=== PATIENT | female | born 1985 ===

== ENCOUNTER 2016-12-28 19:11 | Emergency (ER) | payer MEDICAID ==
[2016-12-28 19:23] VITALS: BP 127/72; PULSE 96; RESP 20; TEMP 98.1; O2SAT 100
[2016-12-28] MEDS ORDERED: Lactated Ringer's 1,000 ML in Lactated Ringer's 1,000 ML IV STA (20:20)
[2016-12-28 20:47] LABS: BASO % 0.3 % (0.0-2.0); EOS # 0.1 K/uL (0.0-0.7); EOS % 1.4 % (0.0-4.0); HEMATOCRIT 34.4 % (34.0-47.0); LYMPH # 2.7 K/uL (1.0-4.3); LYMPH % 30.2 % (20.0-40.0); MEAN CELL VOLUME 88.4 fl (81.0-99.0); MEAN CORPUSCULAR HEMOGLOBIN 29.5 pg (27.0-31.0); MEAN CORPUSCULAR HGB CONC 33.4 g/dL (33.0-37.0); MONO % 11.6 % (0.0-10.0); NEUT # 5.1 K/uL (1.8-7.0); NEUT % 56.5 % (50.0-75.0); RED CELL DISTRIBUTION WIDTH 13.1 % (11.5-14.5)
--- NOTE | 2016-12-28 20:51 | ED PDOC ---
HPI: Abdomen Time Seen by Provider: 12/28/16 19:39 Chief Complaint (Nursing): Abdominal Pain Chief Complaint (Provider): Pelvic Pain History Per: Patient History/Exam Limitations: no limitations Onset/Duration Of Symptoms: Days (x2 weeks) Outside of [place] travel?: No Additional Complaint(s): 19:39 Bhavana Wheeler is a 31 year old female that is currently 7 weeks in her first that presents to the ED with a chief complaint of cramping pelvic pain that she has been experiencing for the past two weeks, but has become more severe and occurred more frequently over the past two days. She states that she is taking vitamins, and that she is following with Dr. Shin at [facility]. She denies any vaginal bleeding or abnormal discharge, urinary complications, hematochezia, rectal pain, nausea, or vomiting, but has been experiencing constipation. Patient is currently asymptomatic. Abnormal Vaginal Bleeding: No Last Menstral Period: 11/10/16 Past Medical History Reviewed: Historical Data, Nursing Documentation, Vital Signs Vital Signs: Last Vital Signs Temp 98.1 F 12/28/16 19:22 Pulse 96 H 12/28/16 19:22 Resp 20 12/28/16 19:22 BP 127/72 12/28/16 19:22 Pulse Ox 100 12/28/16 20:57 - Medical History PMH: No Chronic Diseases - Surgical History Surgical History: No Surg Hx - Family History Family History: States: Other (no significant family history) - Social History Current smoker - smoking cessation education provided: No Alcohol: None - Allergies Allergies/Adverse Reactions: Allergies Allergy/AdvReac Type Severity Reaction Status Date / Time No Known Allergies Allergy Verified 12/28/16 19:21 Review of Systems Gastrointestinal: Positive for: Constipation. Negative for: Nausea, Vomiting, Hematochezia, Rectal Pain Genitourinary Female: Positive for: Pelvic Pain (cramping). Negative for: Dysuria, Frequency, Hematuria, Vaginal Discharge, Vaginal Bleeding Physical Exam - Reviewed Nursing Documentation Reviewed: Yes Vital Signs Reviewed: Yes - Physical Exam Appears: Positive for: Non-toxic, No Acute Distress Head Exam: Positive for: ATRAUMATIC, NORMOCEPHALIC Skin: Positive for: Normal Color, Warm Eye Exam: Positive for: Normal appearance, EOMI Cardiovascular/Chest: Positive for: Regular Rate, Rhythm. Negative for: Murmur Respiratory: Positive for: Normal Breath Sounds. Negative for: Respiratory Distress Pelvic Exam: Positive for: External Exam Normal Neurologic/Psych: Positive for: Alert, Oriented - Laboratory Results Result Diagrams: 12/28/16 20:40 12/28/16 20:40 - ECG O2 Sat by Pulse Oximetry: 100 (RA) Pulse Ox Interpretation: Normal Medical Decision Making Medical Decision Makin:40 Initial Impression: Pelvic Pain vs. UTI vs. Dehydration vs. Round Ligament Pain vs. Normal vs. Demise Initial Plan: * Beta-HCG * CMP * CBC * Urine * Urine Dip * Lactated Ringers 1000 mL at 1000 mLs/hr * US Transvaginal * Reevaluation * EXAM: US , Transvaginal. CLINICAL HISTORY: 31 years old, female; Pain; Other: Pelvic pain; Gestational age or lmp: 11/10/16; TECHNIQUE: Real-time transvaginal obstetrical ultrasound of the maternal pelvis and a first trimester with image documentation. Transvaginal imaging was used for better evaluation of the fetus and adnexa. EXAM DATE/TIME: 12/28/2016 8:21 PM COMPARISON: There are no prior studies for comparison. FINDINGS: Uterus: Uterus measures approximately 7.3 x 4.6 cm. Gestation: There is a single intrauterine gestation. Gestational sac has mean diameter 22.6 mm. A yolk sac is present, internal diameter measures 3 mm. [place] rump length measures 9.4 mm. There is an embryonic heart rate of 139 beats per minute. Right ovary: Right ovary measures approximately 3.03 x 2.97 x 2.78 cm. There is a 1.8 x 1.9 x 1.5 cm complex cyst. There is expected blood flow on Doppler imaging Left ovary: Left ovary measures approximately 2 point well above 1 42 x 1.25 cm. There are multiple follicles. There is expected blood flow on Doppler imaging IMPRESSION: 7 week 0 day single living intrauterine gestation, estimated date of delivery of 08/16/17; right ovarian cyst Thank you for allowing us to participate in the care of your patient. Dictated and Authenticated by: Tiara Spencer MD 12/28/2016 10:53 PM Eastern Time ([place] & [place]) Labs unremarkable Scribe Attestation: Documented by Elba Alberto, acting as a scribe for Apolonia Gu MD Provider Scribe Attestation: All medical record entries made by the Scribe were at my direction and personally dictated by me. I have reviewed the chart and agree that the record accurately reflects my personal performance of the history, physical exam, medical decision making, and the department course for this patient. I have also personally directed, reviewed, and agree with the discharge instructions and disposition. Disposition - Clinical Impression Clinical Impression: Abdominal pain during , Ovarian cyst Counseled Patient/Family Regarding: Studies Performed, Diagnosis, Need For Followup, Rx Given - Disposition Disposition: Routine/Home Disposition Time: 23:00 Condition: GOOD Additional Instructions: DRINK PLENTY OF HYDRATING FLUIDS AND REST FOLLOW UP WITH YOUR UNDERGROUND ELECTRICIAN NEXT WEEK (CALL TO RESCHEDULE AN EARLIER APPOINTMENT) YOU CAN TAKE TYLENOL FOR PAIN. RETURN TO ER FOR SEVERE PAIN, FAINTING OR NEAR FAINTING, BLEEDING OR ANY OTHER WORRISOME SYMPTOMS Instructions: Abdominal Pain in (ED), Ovarian Cyst (ED)
[2016-12-28 21:03] LABS: ALB/GLOB RATIO 1.2 (1.0-2.1); ALKALINE PHOSPHATASE 53 U/L (38-126); ALT/SGPT 30 U/L (9-52); AST/SGOT 24 U/L (14-36); BILIRUBIN,TOTAL 0.2 mg/dl (0.2-1.3); BLOOD UREA NITROGEN 11 mg/dl (7-17); CARBON DIOXIDE 22 mmol/L (22-30); CHLORIDE 103 mmol/L (98-107); GFR AFRICAN-AMERICAN > 60; GLUCOSE,RANDOM 85 mg/dL (65-105); POTASSIUM 3.7 MMOL/L (3.6-5.0); SODIUM 138 mmol/l (132-148); TOTAL PROTEIN 7.3 G/DL (6.3-8.2)
--- NOTE | 2016-12-28 22:54 | US ---
EXAM: US , Transvaginal. CLINICAL HISTORY: 31 years old, female; Pain; Other: Pelvic pain; Gestational age or lmp: 11/10/16; TECHNIQUE: Real-time transvaginal obstetrical ultrasound of the maternal pelvis and a first trimester with image documentation. Transvaginal imaging was used for better evaluation of the fetus and adnexa. EXAM DATE/TIME: 12/28/2016 8:21 PM COMPARISON: There are no prior studies for comparison. FINDINGS: Uterus: Uterus measures approximately 7.3 x 4.6 cm. Gestation: There is a single intrauterine gestation. Gestational sac has mean diameter 22.6 mm. A yolk sac is present, internal diameter measures 3 mm. [place] rump length measures 9.4 mm. There is an embryonic heart rate of 139 beats per minute. Right ovary: Right ovary measures approximately 3.03 x 2.97 x 2.78 cm. There is a 1.8 x 1.9 x 1.5 cm complex cyst. There is expected blood flow on Doppler imaging Left ovary: Left ovary measures approximately 2 point well above 1 42 x 1.25 cm. There are multiple follicles. There is expected blood flow on Doppler imaging IMPRESSION: 7 week 0 day single living intrauterine gestation, estimated date of delivery of 08/16/17; right ovarian cyst
== END 2016-12-28 23:20 | disposition home or self-care (01) ==
LOC: H.ER 19:11
DX: O26.899 Other specified pregnancy related conditions, unspecified trimester (principal); N83.201 Unspecified ovarian cyst, right side

== ENCOUNTER 2018-02-11 18:54 | Emergency (ER) | payer MEDICAID ==
[2018-02-11 19:05] VITALS: BP 117/75; PULSE 77; RESP 18; TEMP 98.7; O2SAT 98
[2018-02-11] MEDS ORDERED: Naproxen 500 MG TAB PO ONE ×2 (19:28→20:41)
--- NOTE | 2018-02-11 20:00 | ED PDOC ---
Upper Extremity Pain/Injury Time Seen by Provider: 02/11/18 19:07 Chief Complaint (Nursing): Finger,Hand,&Wrist Chief Complaint (Provider): Finger, Hand, & Wrist History Per: Patient History/Exam Limitations: no limitations Onset/Duration Of Symptoms: Days (x3) Current Symptoms Are (Timing): Intermittent Episodes Additional Complaint(s): 32 y/o female presents to the ED with atraumatic left wrist pain. Patient states it began 3 days ago when she noticed the pain radiating into her forearm. She saw her PMD yesterday who advised her to use a splint and take Advil. This morning she awoke to numbness to both forearms and upper back both sides and bottoms of both her feet. The numbness has been intermittent to both sides of her feet. Denies any weakness, trauma, headache, fever, or recent illness. PMD: Dr. Hammad Hadley Past Medical History Reviewed: Historical Data, Nursing Documentation, Vital Signs Vital Signs: Last Vital Signs Temp 98.7 F 02/11/18 19:02 Pulse 77 02/11/18 19:02 Resp 18 02/11/18 19:02 BP 117/75 02/11/18 19:02 Pulse Ox 98 02/11/18 19:02 - Medical History PMH: No Chronic Diseases - Surgical History Surgical History: No Surg Hx - Family History Family History: States: No Known Family Hx - Social History Current smoker - smoking cessation education provided: No Ex-Smoker (has not smoked in the last 12 months): No Alcohol: None Drugs: Denies - Allergies Allergies/Adverse Reactions: Allergies Allergy/AdvReac Type Severity Reaction Status Date / Time No Known Allergies Allergy Verified 02/11/18 19:01 Review of Systems ROS Statement: Except As Marked, All Systems Reviewed And Found Negative Constitutional: Negative for: Fever, Weakness, Other (trauma or recent illness) Musculoskeletal: Positive for: Arm Pain, Hand Pain (intermittent to sides of face, forearms, upper back, sides and bottom of feet) Neurological: Positive for: Numbness. Negative for: Headache Physical Exam - Reviewed Nursing Documentation Reviewed: Yes Vital Signs Reviewed: Yes - Physical Exam Appears: Positive for: Non-toxic, In Acute Distress Head Exam: Positive for: ATRAUMATIC, NORMAL INSPECTION, NORMOCEPHALIC Skin: Positive for: Normal Color. Negative for: Warm, Rash (erythema or break in skin integrity) Eye Exam: Positive for: EOMI, Normal appearance, PERRL ENT: Positive for: Normal ENT Inspection Neck: Positive for: Normal, Painless ROM, Supple Cardiovascular/Chest: Positive for: Regular Rate, Rhythm. Negative for: Murmur Respiratory: Positive for: Normal Breath Sounds. Negative for: Respiratory Distress Pulses-Radial (L): 2+ Pulses-Radial (R): 2+ Gastrointestinal/Abdominal: Positive for: Normal Exam, Soft. Negative for: Tenderness Back: Positive for: Normal Inspection. Negative for: L CVA Tenderness, R CVA Tenderness Extremity: Positive for: Normal ROM, Capillary Refill (less than 2 seconds), Swelling (left wrist minimal swelling on radial aspect), Other (equal tiler strength bilaterally). Negative for: Tenderness, Deformity Neurologic/Psych: Positive for: Alert, Oriented (x3), Gait (steady and unassisted), Other (calm and cooperative). Negative for: Aphasia, Facial Droop - Laboratory Results Result Diagrams: 02/11/18 19:45 02/11/18 19:45 - ECG O2 Sat by Pulse Oximetry: 98 (RA) Pulse Ox Interpretation: Normal Medical Decision Making Medical Decision Making: Time: Impression: Wrist pain paresthesias Initial Plan: * CMP * Test * CBC * Naproxen 500 mg PO * X-Ray of the wrist * Kdur 20 mEq PO ordered Scribe Attestation: Documented by Helder Isaac acting as a scribe for NINA Briggs MD Attestation: All medical record entries made by the Scribe were at my direction and personally dictated by me. I have reviewed the chart and agree that the record accurately reflects my personal performance of the history, physical exam, medical decision making, and the department course for this patient. I have also personally directed, reviewed, and agree with the discharge instructions and disposition. Disposition - Clinical Impression Clinical Impression: Paresthesias, Hypokalemia, Wrist pain - Patient ED Disposition Is Patient to be Admitted: No - Disposition Referrals: [facility] [Outside] Giovanni Naik MD [Staff Provider] - Disposition: Routine/Home Disposition Time: 20:41 Condition: STABLE Additional Instructions: Follow up with PMD for further evaluation Return to ED immediately if symptoms worsen Continue using your splint as advised by your PMD Instructions: Hypokalemia (DC), High Potassium Diet, Paresthesias (DC) Forms: [employer] (N[place]ian)
[2018-02-11 20:14] LABS: BASO % 0.4 % (0.0-2.0); EOS # 0.2 K/uL (0.0-0.7); EOS % 2.9 % (0.0-4.0); HEMOGLOBIN 11.1 g/dL (12.0-16.0); LYMPH # 2.9 K/uL (1.0-4.3); LYMPH % 41.7 % (20.0-40.0); MEAN CELL VOLUME 89.1 fl (81.0-99.0); MEAN CORPUSCULAR HEMOGLOBIN 29.4 pg (27.0-31.0); MEAN PLATELET VOLUME 8.4 fl (7.2-11.7); MONO # 0.6 K/uL (0.0-0.8); MONO % 8.9 % (0.0-10.0); NEUT # 3.3 K/uL (1.8-7.0); NEUT % 46.1 % (50.0-75.0); RBC 3.79 Mil/uL (3.80-5.20); RED CELL DISTRIBUTION WIDTH 13.3 % (11.5-14.5); WHITE BLOOD COUNT 7.1 K/uL (4.8-10.8)
[2018-02-11 20:23] LABS: ALB/GLOB RATIO 1.1 (1.0-2.1); ALBUMIN 3.7 g/dL (3.5-5.0); ALT/SGPT 30 U/L (9-52); AST/SGOT 24 U/L (14-36); BLOOD UREA NITROGEN 10 mg/dl (7-17); CALCIUM 8.5 mg/dL (8.4-10.2); GFR AFRICAN-AMERICAN > 60; GFR NON-AFRICAN AMERICAN > 60
[2018-02-11] MEDS ORDERED: Potassium Chloride 20 mEq ER Tab PO STA (20:31)
[2018-02-11] MEDS ORDERED: Potassium Chloride 20 mEq ER Tab PO ONE (20:41)
--- NOTE | 2018-02-12 07:56 | RAD ---
PROCEDURE: Left Wrist Radiographs. HISTORY: Pain. No history of recent/ related trauma provided COMPARISON: None. FINDINGS: BONES: Normal. No fracture. JOINTS: Normal. No dislocation. SOFT TISSUES: Normal. OTHER FINDINGS: None. IMPRESSION: Normal left wrist radiographs.
== END 2018-02-11 20:50 | disposition home or self-care (01) ==
LOC: H.ER 18:54
DX: M25.532 Pain in left wrist (principal); E87.6 Hypokalemia; R20.2 Paresthesia of skin